=== PATIENT | male | born 1965 | race Hispanic/Latino ===

== ENCOUNTER 2016-08-27 19:10 | Emergency (ER) | payer BC ==
[2016-08-27] MEDS ORDERED: Fentanyl 100 MCG/2 ML VIAL ONE (19:40)
[2016-08-27] MEDS ORDERED: Lidocaine 1% 20 ML MDV ONE (19:40)
== END 2016-08-27 20:18 | disposition home or self-care (01) ==
LOC: BURERS 19:10
DX: K64.5 Perianal venous thrombosis (principal); K64.8 Other hemorrhoids
CPT/HCPCS: 46320; 96372; J2001; J3010

== ENCOUNTER 2022-11-29 23:02 | Emergency (ER) | payer BC, OTHER | END 2022-11-30 00:29 | disposition home or self-care (01) | LOC: BURERS 23:02 | DX: K92.1 Melena (principal); E78.00 Pure hypercholesterolemia, unspecified | CPT/HCPCS: 99283 ==

== ENCOUNTER 2024-03-15 14:58 | Emergency (ER) | payer BC, OTHER ==
[2024-03-15] MEDS ORDERED: Ketorolac Tromethamine 30 MG (1 mL) VIAL ONE (15:13)
[2024-03-15] MEDS ORDERED: Boostrix 0.5 ML (Tdap) VIAL (>/=7 yrs of age) ONE (15:24)
== END 2024-03-15 15:47 | disposition home or self-care (01) ==
LOC: BURERS 14:58
DX: S70.01XA Contusion of right hip, initial encounter (principal); M16.11 Unilateral primary osteoarthritis, right hip; I10 Essential (primary) hypertension; E78.5 Hyperlipidemia, unspecified; Z79.899 Other long term (current) drug therapy; W14.XXXA Fall from tree, initial encounter
CPT/HCPCS: 90471; 90715; 96372; J1885